=== PATIENT | male | born 2000 | race Caucasian/White ===

== ENCOUNTER 2018-12-27 04:01 | Emergency (ER) | payer OTHER ==
[2018-12-27] MEDS: DEXAMETHASONE 10 MG/ML 1 ML INJ IM (04:28)
[2018-12-27] MEDS: FAMOTIDINE 20 MG TAB PO (04:28)
[2018-12-27] MEDS: DIPHENHYDRAMINE 25 MG CAP PO (04:28)
== END 2018-12-27 04:35 | disposition home or self-care (01) ==
LOC: FTE 04:01
DX: L50.9 Urticaria, unspecified (principal); J45.909 Unspecified asthma, uncomplicated
CPT/HCPCS: 96372; 99284-25